=== PATIENT | male | born 1950 | race Caucasian/White ===

== ENCOUNTER 2016-07-30 08:54 | Observation (INO) | payer OTHER ==
[~2016-07-30] VITALS: Ht 182.9 cm; Wt 95.0 kg
[~2016-07-30 08:54] MED LIST: ASPI81TA82 PO; ATOR20TA42 PO; BUPR150XL PO; CELE200 PO; COMBAER INH; D3 U5000 PO; DICY10 PO; GABA300 PO; IRBE150T49 PO; LEXA20TA PO; METO25CR PO; MOME17I INH; MONT10TA2 PO; MUCI600T PO; NITR0.4S SL; OMEP20TA PO; PERC10TA27 PO; ZOFR4TAB3 SL; [UNRECOGNIZED DRUG - CODE] PO
[2016-07-30 09:03] VITALS: BP 140/79; PULSE 107; RESP 18; TEMP 98; O2SAT 100
[2016-07-30 09:11] VITALS: BP 140/79; PULSE 111; RESP 18; RESP 20; O2SAT 98
[2016-07-30] MEDS ORDERED: PANTOPRAZOLE SODIUM 40 MG VIAL IV PUSH ONE (09:15)
[2016-07-30] MEDS ORDERED: ONDANSETRON HCL 4 MG/2 ML VIAL IVP ONE (09:15)
[2016-07-30] MEDS ORDERED: SODIUM CHLORIDE 0.9% FLUSH 10 ML FLUSH IV FLUSH PRN ×2 (09:15→12:30)
--- NOTE | 2016-07-30 09:20 | PD ---
HPI Chief Complaint: GI Complaint Time Seen by Provider: 09:10 Travel History International Travel<30 days: No Contact w/Intl Traveler<30days: No Traveled to known affect area: No History of Present Illness HPI 66-year-old male with history of the month history of abdominal pains, intermittent nausea and vomiting, briefly diagnosed with gastritis, has had full workup done several days ago with CAT scan in which did not show any signs of acute processes, presents to the ER today with ongoing problems with nausea, vomiting, and vomiting up small amounts of blood. He states that his nausea and vomiting has been worsening a last week. He has noticed greatest stools but denies any black stools or blood in the stools. He states his pain is currently a 6 out of 10. He has not noticed any exacerbating or alleviating factors. Modifying Factors: None Associated Signs & Symptoms: Nausea, vomiting, abdominal pain Risk Factors: Nausea and vomiting PFSH Past Medical History Asthma: Yes Depression: Yes Cancer: Yes (leukemia) Cardiovascular Problems: Yes High Cholesterol: Yes Chemotherapy: Yes Chest Pain: Yes COPD: Yes Diabetes: Yes Patient Takes Glucophage: No GERD: Yes Hypertension: Yes Respiratory: Yes Tetanus Vaccination: > 5 Years Influenza Vaccination: Yes Past Surgical History Abdominal Surgery: Yes (bi-lat hernia repair) Other Surgery: Yes (fistula repair) Social History Alcohol Use: Yes (OCCASIONALLY) Tobacco Use: No Substance Use: No Allergies-Medications (Allergen,Severity, Reaction): Coded Allergies: No Known Allergies (Verified , 07/30/16) Reported Meds & Prescriptions Reported Meds & Active Scripts Active Reported Atorvastatin (Atorvastatin Calcium) 40 Mg Tab 40 Mg PO HS Montelukast (Montelukast Sodium) 10 Mg Tab 10 Mg PO HS Omeprazole 40 Mg Cap 40 Mg PO DAILY Irbesartan 300 Mg Tab 300 Mg PO DAILY Metoprolol Succinate ER 24 HR (Metoprolol Succinate) 25 Mg Tab 25 Mg PO DAILY Aspir-Low (Aspirin) 81 Mg Tabdr 81 Mg DAILY Escitalopram (Escitalopram Oxalate) 20 Mg Tab 20 Mg PO DAILY Celecoxib 200 Mg Cap 200 Mg PO DAILY Nitrostat SL (Nitroglycerin) 0.4 Mg Subl 0.4 Mg SL DIRECTED PRN 1 tablet under the tongue as needed for chest pain. Repeat every 5 minutes for a total of 3 DOSES or call 911 if NO relief. Wellbutrin SR 12 HR (Bupropion HCl) 200 Mg Tab 200 Mg PO DAILY Review of Systems Except as stated in HPI: all other systems reviewed are Neg Physical Exam Narrative GENERAL: Well-developed elderly white male patient who is currently in mild distress awake and oriented 3. SKIN: Focused skin assessment warm/dry. HEAD: Atraumatic. Normocephalic. EYES: Pupils equal and round. No scleral icterus. No injection or drainage. ENT: No nasal bleeding or discharge. Mucous membranes pink and moist. NECK: Trachea midline. No JVD. CARDIOVASCULAR: Regular rate and rhythm. No murmur appreciated. RESPIRATORY: No accessory muscle use. Clear to auscultation. Breath sounds equal bilaterally. GASTROINTESTINAL: Abdomen soft, epigastric and left upper quadrant tenderness without guarding or rebound, nondistended. Hepatic and splenic margins not palpable. MUSCULOSKELETAL: No obvious deformities. No clubbing. No cyanosis. No edema. NEUROLOGICAL: Awake and alert. No obvious cranial nerve deficits. Motor grossly within normal limits. Normal speech. PSYCHIATRIC: Appropriate mood and affect; insight and judgment normal. Data Data Last Documented VS Vital Signs Date Time Temp Pulse Resp B/P Pulse Ox O2 Delivery O2 Flow Rate FiO2 07/30/16 09:11 18 07/30/16 09:11 98 Room Air 07/30/16 09:11 111 140/79 07/30/16 09:03 98.0 Orders Complete Blood Count With Diff (07/30/16 09:05) Comprehensive Metabolic Panel (07/30/16 09:05) Lipase (07/30/16 09:05) Urinalysis - C+S If Indicated (07/30/16 09:05) Iv Access Insert/Monitor (07/30/16 09:05) Ecg Monitoring (07/30/16 09:05) Oximetry (07/30/16 09:05) Ondansetron Inj (Zofran Inj) (07/30/16 09:15) Sodium Chloride 0.9% Flush (Ns Flush) (07/30/16 09:15) Pantoprazole Inj (Protonix Inj) (07/30/16 09:15) Electrocardiogram (07/30/16 09:20) Abdomen, Flat & Upright (07/30/16 09:20) Ct Abd/Pel W Iv Contrast(Rout) (07/30/16 10:36) Iohexol 350 Inj (Omnipaque 350 Inj) (07/30/16 11:35) Admit Order (Ed Use Only) (07/30/16 12:03) Labs Laboratory Tests Test 07/30/16 09:15 White Blood Count 14.6 TH/MM3 Red Blood Count 4.78 MIL/MM3 Hemoglobin 14.5 GM/DL Hematocrit 43.5 % Mean Corpuscular Volume 91.0 FL Mean Corpuscular Hemoglobin 30.4 PG Mean Corpuscular Hemoglobin 33.4 % Concent Red Cell Distribution Width 12.3 % Platelet Count 245 TH/MM3 Mean Platelet Volume 9.5 FL Neutrophils (%) (Auto) 88.4 % Lymphocytes (%) (Auto) 5.0 % Monocytes (%) (Auto) 5.8 % Eosinophils (%) (Auto) 0.6 % Basophils (%) (Auto) 0.2 % Neutrophils # (Auto) 12.9 TH/MM3 Lymphocytes # (Auto) 0.7 TH/MM3 Monocytes # (Auto) 0.8 TH/MM3 Eosinophils # (Auto) 0.1 TH/MM3 Basophils # (Auto) 0.0 TH/MM3 CBC Comment DIFF FINAL Differential Comment Sodium Level 139 MEQ/L Potassium Level 3.3 MEQ/L Chloride Level 109 MEQ/L Carbon Dioxide Level 19.6 MEQ/L Anion Gap 10 MEQ/L Blood Urea Nitrogen 27 MG/DL Creatinine 1.14 MG/DL Estimat Glomerular Filtration 64 ML/MIN Rate Random Glucose 181 MG/DL Calcium Level 8.5 MG/DL Total Bilirubin 0.6 MG/DL Aspartate Amino Transf 10 U/L (AST/SGOT) Alanine Aminotransferase 30 U/L (ALT/SGPT) Alkaline Phosphatase 101 U/L Total Protein 6.4 GM/DL Albumin 3.6 GM/DL Lipase 77 U/L [facility] Medical Decision Making Medical Screen Exam Complete: Yes Emergency Medical Condition: Yes Medical Record Reviewed: Yes Interpretation(s) EKG shows sinus tachycardia at a rate of 110 bpm with no signs of acute ST-T changes. Laboratory Tests Test 07/30/16 09:15 White Blood Count 14.6 TH/MM3 (4.0-11.0) Neutrophils (%) (Auto) 88.4 % (16.0-70.0) Lymphocytes (%) (Auto) 5.0 % (9.0-44.0) Neutrophils # (Auto) 12.9 TH/MM3 (1.8-7.7) Lymphocytes # (Auto) 0.7 TH/MM3 (1.0-4.8) Potassium Level 3.3 MEQ/L (3.5-5.1) Chloride Level 109 MEQ/L (98-107) Carbon Dioxide Level 19.6 MEQ/L (21.0-32.0) Blood Urea Nitrogen 27 MG/DL (7-18) Estimat Glomerular Filtration 64 ML/MIN (>89) Rate Random Glucose 181 MG/DL (74-106) Aspartate Amino Transf 10 U/L (15-37) (AST/SGOT) Differential Diagnosis Nausea, vomiting, abdominal painsgastritis versus gastroenteritis versus GI bleed versus dehydration versus metabolic issues Narrative Course Lab work shows significant leukocytosis. He is tachycardic in the ER. IV fluids, pain medications, and Zofran was given to the patient. CAT scan did not show any signs of acute intra-abdominal processes. The case was then discussed with Dr. Gil for observation admission concerning for underlying GI bleeding, gastritis, abdominal pain. Diagnosis Primary Impression: UPPER ABDOMINAL PAIN, UNSPECIFIED Additional Impression: GI bleeding Admitting Information Admitting Physician Requests: Admit Amy Cueto MD Jul 30, 2016 09:20
[2016-07-30] MEDS ORDERED: ATOR40TA16 PO (09:49)
[2016-07-30] MEDS ORDERED: MONT10TA4 PO (09:49)
[2016-07-30] MEDS ORDERED: OMEP40CA2 PO (09:49)
[2016-07-30] MEDS ORDERED: IRBE300T11 PO (09:49)
[2016-07-30] MEDS ORDERED: BUPR1TAB74 PO (09:49)
[2016-07-30] MEDS ORDERED: ASPI81TA19 (09:49)
[2016-07-30] MEDS ORDERED: CELE1CAP8 PO (09:49)
[2016-07-30] MEDS ORDERED: NITR0.4S SL (09:49)
[2016-07-30] MEDS ORDERED: METO25TA6 PO (09:49)
[2016-07-30] MEDS ORDERED: ESCI20TA PO (09:49)
[2016-07-30] MEDS ORDERED: WELL200T PO (09:49)
[2016-07-30 09:52] LABS: AUTOMATED NEUTROPHIL # 12.9 TH/MM3 (1.8-7.7); BASOPHIL % 0.2 % (0.0-2.0); EOSINOPHIL # 0.1 TH/MM3 (0-0.4); EOSINOPHIL % 0.6 % (0.0-4.0); HEMATOCRIT 43.5 % (39.0-51.0); HEMO FLAGS DIFF FINAL; LYMPHOCYTE # 0.7 TH/MM3 (1.0-4.8); MEAN CORPUSCULAR HEMOGLOBIN 30.4 PG (27.0-34.0); MEAN CORPUSCULAR HGB CONC 33.4 % (32.0-36.0); MONO % 5.8 % (0.0-8.0); NEUT % 88.4 % (16.0-70.0); PLATELET COUNT 245 TH/MM3 (150-450); RED BLOOD COUNT 4.78 MIL/MM3 (4.50-5.90); RED CELL DISTRIBUTION WIDTH 12.3 % (11.6-17.2); WHITE BLOOD COUNT 14.6 TH/MM3 (4.0-11.0)
[2016-07-30 10:11] LABS: ANION GAP 10 MEQ/L (5-15); AST (GOT) 10 U/L (15-37); BICARBONATE 19.6 MEQ/L (21.0-32.0); BLOOD UREA NITROGEN 27 MG/DL (7-18); CHLORIDE 109 MEQ/L (98-107); GLOMERULAR FILTRATION RATE 64 ML/MIN (>89); POTASSIUM 3.3 MEQ/L (3.5-5.1); SODIUM (NA) 139 MEQ/L (136-145)
[2016-07-30 10:15] LABS: ALKALINE PHOSPHATASE 101 U/L (45-117); ALT (GPT) 30 U/L (12-78); TOTAL BILIRUBIN ADULT 0.6 MG/DL (0.2-1.0)
[2016-07-30] MEDS ORDERED: IOHEXOL 350 MG/ML 10 ML VIAL (for RAD DIAG) IV ONE (11:35)
--- NOTE | 2016-07-30 11:52 | RADRPT ---
EXAM DATE/TIME: 07/30/2016 09:46 [facility] COMPARISON: No previous studies available for comparison. INDICATIONS : Vomiting. MEDICAL HISTORY : Leukemia. SURGICAL HISTORY : Hernia repair ENCOUNTER: Initial ACUITY: 1 day PAIN SCORE: 7/10 LOCATION: Bilateral across abdomen FINDINGS: Supine and upright views of the abdomen were performed. The abdominal bowel gas pattern is normal. No air fluid levels are seen. No abnormal masses, calcifications, or organomegaly is seen. The visu alized lower lungs are clear. No evidence of free intraperitoneal gas. There are postsurgical change s in lower lumbar spine status post multilevel fusion. There is mild scoliosis and degenerative disc changes are present. There are multiple surgical patricia in the pelvis. CONCLUSION: 1. Unremarkable bowel gas pattern. 2. Degenerative and postsurgical changes in the lumbar spine. Jozef Dennis MD on July 30, 2016 at 11:50 Board Certified Radiologist. This report was verified electronically.
--- NOTE | 2016-07-30 11:58 | RADRPT ---
EXAM DATE/TIME: 07/30/2016 11:30 [facility] COMPARISON: CT ABDOMEN & PELVIS W CONTRAST, March 11, 2014, 10:59. INDICATIONS : Abdominal pain for one month with intermittent nausea and vomiting IV CONTRAST: 80 cc Omnipaque 350 (iohexol) IV ORAL CONTRAST: No oral contrast ingested. RADIATION DOSE: 9.96 CTDIvol (mGy) MEDICAL HISTORY : Hypertension. Gastroesophageal reflux disease. Leukemia. SURGICAL HISTORY : Bilateral hernia repair. Back surgery. ENCOUNTER: Initial ACUITY: 1 month PAIN SCALE: 5/10 LOCATION: Diffuse abdomen TECHNIQUE: Volumetric scanning of the abdomen and pelvis was performed. Using automated exposure control and ad justment of the mA and/or kV according to patient size, radiation dose was kept as low as reasonably achievable to obtain optimal diagnostic quality images. FINDINGS: LOWER LUNGS: The visualized lower lungs are clear. LIVER: Homogeneous density with a tiny stable cyst again noted in the right lobe. There is no dilation of th e biliary tree. No calcified gallstones. There is mild hepatic steatosis. SPLEEN: Normal size without lesion. PANCREAS: Within normal limits. KIDNEYS: Normal in size and shape. There is no mass, stone or hydronephrosis. ADRENAL GLANDS: Within normal limits. VASCULAR: Atherosclerotic changes again noted in the aorta with focal dilatation calcification. This now measur es up to approximately 2.9 x 2.9 cm and is not significantly changed. BOWEL/MESENTERY: The stomach, small bowel, and colon demonstrate no acute abnormality. There is no free intraperitone al air or fluid. ABDOMINAL WALL: Surgical changes are again noted status post lower abdominal wall hernia repair with mesh in place. RETROPERITONEUM: There is no lymphadenopathy. BLADDER: No wall thickening or mass. REPRODUCTIVE: Within normal limits. INGUINAL: There is no lymphadenopathy or hernia. MUSCULOSKELETAL: Postsurgical changes are again noted in the lumbar spine status post multilevel fusion. CONCLUSION: 1. Borderline small abdominal aortic aneurysm without change. 2. Small hiatal hernia. 3. Stable small hepatic cysts and mild hepatic steatosis. 4. Status post lower anterior abdominal wall hernia repair. Jozef Dennis MD on July 30, 2016 at 11:53 Board Certified Radiologist. This report was verified electronically.
[2016-07-30] MEDS ORDERED: BISACODYL 10 MG SUPP RECTAL PRN (12:30)
[2016-07-30] MEDS ORDERED: NALOXONE HCL 0.4 MG/ML AMP IV PRN (12:30)
[2016-07-30] MEDS ORDERED: ONDANSETRON HCL 4 MG/2 ML VIAL IV PUSH ONE (12:30)
[2016-07-30 13:08] VITALS: BP 136/83; PULSE 116; RESP 18; O2SAT 99
[2016-07-30] MEDS: SODIUM CHLOR 0.9% 1000 ML INJ 1,000 ML IV SCH ×2 (13:09→21:16)
--- NOTE | 2016-07-30 14:13 | HHI.HP ---
[facility] Primary Care Physician Non-Staff Admission Diagnosis abdominal pain/GI bleed Diagnoses: Chief Complaint: abdominal pain, vomitting, and diarrhea Travel History International Travel<30 Days: No Contact w/Intl Traveler <30 Da: No Traveled to Known Affected Are: No History of Present Illness This is a 66-year-old male past medical history of hypertension, hyperlipidemia , diet-controlled type 2 diabetes, COPD, history of hairy cell leukemia in remission who presented with abdominal pain, emesis, diarrhea, and dysphasia for 1 month. Patient stated that pain is constant, diffuse across the abdomen. He stated nothing makes it better or worse. Patient states emesis occurs randomly and it may or may not be associated with food. Emesis described as anything that patient ingest. Patient also had diarrhea about 6 watery stools every day. Deny any recent travels or antibiotic use. He stated that yesterday it had gotten so bad where he had increased emesis in which he saw some blood and 3 of the episodes so went to emergency department. Patient did see his primary care physician regards to this and stated that he had a CT scan of the abdomen and pelvis and abdominal ultrasound in which workup was negative. Patient takes aspirin 81 mg and Celebrex. Otherwise he denies taking any other NSAIDs. Patient had a colonoscopy a couple years ago and had a few polyps that were benign. He also complained about difficulty swallowing for the past month. He stated that when he ingests solid food he feels like it stuck in his throat. He also stated that this occurs with liquids but is mild. Review of Systems Constitutional: DENIES: Diaphoretic episodes, Fatigue, Fever, Weight gain, Weight loss, Chills, Dizziness, Change in appetite, Night Sweats Endocrine: DENIES: Heat/cold intolerance, Polydipsia, Polyuria, Polyphagia Eyes: DENIES: Blurred vision, Diplopia, Eye inflammation, Eye pain, Vision loss , Photosensitivity, Double Vision Ears, nose, mouth, throat: DENIES: Tinnitus, Hearing loss, Vertigo, Nasal discharge, Oral lesions, Throat pain, Hoarseness, Ear Pain, Running Nose, Epistaxis, Sinus Pain, Toothache, Odynophagia Respiratory: DENIES: Apneas, Cough, Snoring, Wheezing, Hemoptysis, Sputum production, Shortness of breath Cardiovascular: DENIES: Chest pain, Palpitations, Syncope, Dyspnea on Exertion , PND, Lower Extremity Edema, Orthopnea, Claudication Gastrointestinal: COMPLAINS OF: Abdominal pain, Diarrhea, Nausea, Difficulty Swallowing, DENIES: Black stools, Bloody stools, Constipation, Vomiting, Anorexia Genitourinary: DENIES: Sexual dysfunction, Urinary frequency, Urinary incontinence, Urgency, Hematuria, Dysuria, Nocturia, Penile Discharge, Testicular Pain, Testicular Swelling Musculoskeletal: DENIES: Joint pain, Muscle aches, Stiffness, Joint Swelling, Back pain, Neck pain Integumentary: DENIES: Abnormal pigmentation, Nail changes, Pruritus, Rash Hematologic/lymphatic: DENIES: Bruising, Lymphadenopathy Immunologic/allergic: DENIES: Eczema, Urticaria Neurologic: DENIES: Abnormal gait, Headache, Localized weakness, Paresthesias, Seizures, Speech Problems, Tremor, Poor Balance Psychiatric: DENIES: Anxiety, Confusion, Mood changes, Depression, Hallucinations, Agitation, Suicidal Ideation, Homicidal Ideation, Delusions Past Family Social History Past Medical History Hypertension, hyperlipidemia, type 2 diabetes diet-controlled, COPD, history of hairy cell leukemia in remission last chemotherapy dose in 2007, depression Past Surgical History Multiple back surgeries Neck repair Hernia repair Rectal surgery secondary to fistula Reported Medications Atorvastatin (Atorvastatin Calcium) 40 Mg Tab 40 Mg PO HS Montelukast (Montelukast Sodium) 10 Mg Tab 10 Mg PO HS Omeprazole 40 Mg Cap 40 Mg PO DAILY Irbesartan 300 Mg Tab 300 Mg PO DAILY Metoprolol Succinate ER 24 HR (Metoprolol Succinate) 25 Mg Tab 25 Mg PO DAILY Aspir-Low (Aspirin) 81 Mg Tabdr 81 Mg DAILY Escitalopram (Escitalopram Oxalate) 20 Mg Tab 20 Mg PO DAILY Celecoxib 200 Mg Cap 200 Mg PO DAILY Nitrostat SL (Nitroglycerin) 0.4 Mg Subl 0.4 Mg SL DIRECTED PRN 1 tablet under the tongue as needed for chest pain. Repeat every 5 minutes for a total of 3 DOSES or call 911 if NO relief. Wellbutrin SR 12 HR (Bupropion HCl) 200 Mg Tab 200 Mg PO DAILY Allergies: Coded Allergies: No Known Allergies (Verified , 07/30/16) Active Ordered Medications Current Medications Ondansetron HCl (Zofran Inj) 4 mg ONCE ONCE IVP Last administered on 09:56; Start 07/30/16 at 09:15; Stop 07/30/16 at 09:16; Status DC Sodium Chloride (NS Flush) 2 ml UNSCH PRN IV FLUSH FLUSH AFTER USING IV ACCESS ; Start 07/30/16 at 09:15; Stop 07/30/16 at 12:53; Status DC Pantoprazole Sodium (Protonix Inj) 40 mg ONCE ONCE IV PUSH Last administered on 07/30/16 09:55; Start 07/30/16 at 09:15; Stop 07/30/16 at 09:16; Status DC Iohexol 80 ml 80 ml STK-MED ONCE IV Last administered on 07/30/16 11:35; Start 07/30/16 at 11:35; Stop 07/30/16 at 11:36; Status DC Sodium Chloride (NS 1000 ml Inj) 1,000 ml @ 125 mls/hr Q8H IV Last administered on 07/30/16 13:09; Start 07/30/16 at 12:17 Sodium Chloride (NS Flush) 2 ml UNSCH PRN IV FLUSH FLUSH AFTER USING IV ACCESS ; Start 07/30/16 at 12:30 Sodium Chloride (NS Flush) 2 ml BID IV FLUSH ; Start 07/30/16 at 21:00 Acetaminophen (Tylenol) 650 mg Q4H PRN PO TEMP > 100.4; Start 07/30/16 at 12:30 Ondansetron HCl (Zofran Inj) 4 mg Q6H PRN IVP NAUSEA OR VOMITING; Start at 12:30 Bisacodyl (Dulcolax Supp) 10 mg DAILY PRN RECTAL CONSTIPATION; Start 07/30/16 at 12:30 Naloxone HCl (Narcan Inj) 0.4 mg UNSCH PRN IV SEE LABEL COMMENTS; Start at 12:30 Ondansetron HCl (Zofran Inj) 4 mg ONCE ONCE IV PUSH Last administered on 13:10; Start 07/30/16 at 12:30; Stop 07/30/16 at 12:31; Status DC Pantoprazole Sodium 40 mg 40 mg Q12H IV PUSH ; Start 07/30/16 at 21:00 Sodium Chloride (NS 1000 ml Inj) 1,000 ml @ 999 mls/hr BOLUS ONCE IV ; Start 07/30/16 at 15:00; Stop 07/30/16 at 16:00 Atorvastatin Calcium (Lipitor) 40 mg HS PO ; Start 07/30/16 at 21:00; Status UNV Bupropion HCl (Wellbutrin Sr 12 Hr) 200 mg DAILY PO ; Start 07/31/16 at 09:00; Status UNV Escitalopram Oxalate (Lexapro) 20 mg DAILY PO ; Start 07/31/16 at 09:00; Status UNV Metoprolol Succinate (Toprol Xl) 25 mg DAILY PO ; Start 07/31/16 at 09:00; Status UNV Montelukast Sodium (Singulair) 10 mg HS PO ; Start 07/30/16 at 21:00; Status UNV Non-Formulary Medication 300 mg DAILY PO BPM; Start 07/31/16 at 09:00; Status UNV Family History Father had lung cancer and colon cancer. Mother had colon cancer and vaginal cancer. Sister had breast cancer. Social History Patient was at home by himself. Denies any alcohol illicit drug use. He stated that he stopped smoking 8 years ago. Physical Exam Vital Signs Vital Signs Date Time Temp Pulse Resp B/P Pulse Ox O2 Delivery O2 Flow Rate FiO2 07/30/16 13:08 116 18 136/83 99 Nasal Cannula 2 07/30/16 09:11 18 07/30/16 09:11 18 98 Room Air 07/30/16 09:11 111 20 140/79 98 Room Air 07/30/16 09:03 98.0 107 18 140/79 100 Physical Exam GENERAL: This is a well-nourished, well-developed patient, in no apparent distress. SKIN: No rashes, ecchymoses or lesions. Cool and dry. HEAD: Atraumatic. Normocephalic. No temporal or scalp tenderness. EYES: Pupils equal round and reactive. Extraocular motions intact. No scleral icterus. No injection or drainage. ENT: Nose without bleeding, purulent drainage or septal hematoma. Throat without erythema, tonsillar hypertrophy or exudate. Uvula midline. Airway patent. NECK: Trachea midline. No JVD or lymphadenopathy. Supple, nontender, no meningeal signs. CARDIOVASCULAR: Regular rate and rhythm without murmurs, gallops, or rubs. RESPIRATORY: Clear to auscultation. Breath sounds equal bilaterally. No wheezes , rales, or rhonchi. GASTROINTESTINAL: Abdomen soft, non-tender, nondistended. No hepato-splenomegaly , or palpable masses. No guarding. MUSCULOSKELETAL: Extremities without clubbing, cyanosis, or edema. No joint tenderness, effusion, or edema noted. No calf tenderness. Negative Homans sign bilaterally. NEUROLOGICAL: Awake and alert. Cranial nerves II through XII intact. Motor and sensory grossly within normal limits. Five out of 5 muscle strength in all muscle groups. Normal speech. Laboratory Laboratory Tests Test 07/30/16 09:15 White Blood Count 14.6 Red Blood Count 4.78 Hemoglobin 14.5 Hematocrit 43.5 Mean Corpuscular Volume 91.0 Mean Corpuscular Hemoglobin 30.4 Mean Corpuscular Hemoglobin 33.4 Concent Red Cell Distribution Width 12.3 Platelet Count 245 Mean Platelet Volume 9.5 Neutrophils (%) (Auto) 88.4 Lymphocytes (%) (Auto) 5.0 Monocytes (%) (Auto) 5.8 Eosinophils (%) (Auto) 0.6 Basophils (%) (Auto) 0.2 Neutrophils # (Auto) 12.9 Lymphocytes # (Auto) 0.7 Monocytes # (Auto) 0.8 Eosinophils # (Auto) 0.1 Basophils # (Auto) 0.0 CBC Comment DIFF FINAL Differential Comment Sodium Level 139 Potassium Level 3.3 Chloride Level 109 Carbon Dioxide Level 19.6 Anion Gap 10 Blood Urea Nitrogen 27 Creatinine 1.14 Estimat Glomerular Filtration 64 Rate Random Glucose 181 Calcium Level 8.5 Total Bilirubin 0.6 Aspartate Amino Transf 10 (AST/SGOT) Alanine Aminotransferase 30 (ALT/SGPT) Alkaline Phosphatase 101 Total Protein 6.4 Albumin 3.6 Lipase 77 Result Diagram: 07/30/1691407/30/16914 Imaging Last Impressions Abdomen/Pelvis CT 07/30/16 1036 Signed Impressions: Service Date/Time: July 11:30 - CONCLUSION: 1. Borderline small abdominal aortic aneurysm without change. 2. Small hiatal hernia. 3. Stable small hepatic cysts and mild hepatic steatosis. 4. Status post lower anterior abdominal wall hernia repair. Jozef Dennis MD Abdomen X-Ray 07/30/16 0920 Signed Impressions: Service Date/Time: July 09:46 - CONCLUSION: 1. Unremarkable bowel gas pattern. 2. Degenerative and postsurgical changes in the lumbar spine. Jozef Dennis MD Assessment and Plan Assessment and Plan 56-year-old male with history of hypertension, lipidemia, COPD, diet-controlled diabetes, depression who presented with Abdominal pain, emesis, and diarrhea -CT scan showed a borderline small abdominal aneurysm, hiatal hernia, hepatic cysts, lower abdominal wall hernia repair. -Patient is tachycardia with a mild leukocytosis but otherwise labs are relatively stable. -Patient had an outpatient ultrasound the liver and CT scan of his abdomen which was negative. Will try to obtain records of the ultrasound. -Questionable hematemesis so we'll need to consult GI for possible scope. -Hemoglobin is stable. Will trend H&H. Will get stool studies. Check a TSH. -Start patient on Protonix 40 mg IV twice a day. -Continue with supportive care with IV fluids and anti-emetics. Questionable hematemesis -Trend H&H. Patient will be on Protonix. -Will hold aspirin and Celebrex. -Will transfuse as needed. At the moment patient hemoglobin is 14.6. -GI consult. Dysphagia -Will get a barium swallow study. GI also consulted for possible EGD. Leukocytosis -Most likely secondary to an inflammatory process. -No bacterial infection noted at the moment. -We'll continue to monitor. Tachycardia -Most likely secondary to dehydration. Will give patient a bolus of normal saline and start him on IV maintenance fluids. -He will be monitored on telemetry. Hypokalemia -Replenish as needed. Hypertension/hyperlipidemia/type 2 diabetes diet-controlled/depression/hairy cell leukemia in remission -Will hold aspirin and Celebrex secondary to possible GI bleed. -Will resume home medication. -Also start patient on insulin sliding scale. DVT prophylaxis -Will avoid chemoprophylaxis due to possible GI bleed. -SCDs. Code Status full Discussed Condition With patient and nurse Amanda Gil MD Jul 30, 2016 14:13
[2016-07-30] MEDS ORDERED: GLUCAGON 1 MG/ML VIAL OTHER PRN (14:45)
[2016-07-30] MEDS ORDERED: POTASSIUM CHLORIDE 10 MEQ CONTROLLED RELEASE TAB PO ONE (14:45)
[2016-07-30] MEDS ORDERED: DEXTROSE 50% IN WATER 50 ML VIAL(D50) IV PUSH PRN (14:45)
[2016-07-30] MEDS ORDERED: SODIUM CHLOR 0.9% 1000 ML INJ 1,000 ML IV ONE (15:00)
--- NOTE | 2016-07-30 15:15 | RADRPT ---
EXAM DATE/TIME: 07/30/2016 14:53 [facility] COMPARISON: No previous studies available for comparison. INDICATIONS : Dysphagia. FLUORO TIME: 1.3 minutes IMAGE COUNT: 12 CONTRAST: 1. Liquid E-Z Paque Barium Sulfate (60% w/v, 41% w.w) 2. E-Z HD Barium Sulfate (98% w.w) MEDICAL HISTORY : Leukemia. Radiation and chemotherapy. SURGICAL HISTORY : Cspine fusion. ENCOUNTER: Initial ACUITY: >1 year PAIN SCORE: 0/10 LOCATION: Esophagus. FINDINGS: Air-contrast views of the hypopharynx demonstrate a normal mucosal surface without filling defect. R apid sequence images of the hypopharynx and cervical esophagus during the passage of barium demonstra te a normal swallowing function. No evidence of aspiration. Multiphasic examination of the esophagu s demonstrates no esophageal fold thickening, ulceration, or filling defect. The gastroesophageal ju nction is normal in configuration without evidence of hiatal hernia. Patient is status post cervical fusion at the C4-C7 level with anterior screw-plate fixation device. There is bone grafting material and markers in the interspace. CONCLUSION: Unremarkable exam. Jozef Dennis MD on July 30, 2016 at 15:06 Board Certified Radiologist. This report was verified electronically.
--- NOTE | 2016-07-30 15:21 | PD.CONS ---
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 He reports that his symptoms began about a month ago with nausea, vomiting, and abdominal pain with diffuse and a constant pressure/achy pain. It does not seem to be related to food or month. He has frequent nausea/vomiting, usually this was bilious material, but he reports that he did vomit "a half of pint of blood" mixed in his emesis x 2 times overnight. He does have GERD and takes omeprazole at home and this usually controls this. He also has been having diarrhea with about 6 watery brown stools every day. He has not seen any blood in this. He has been having some difficulty swallowing with solid foods getting caught in his upper esophagus. He states that occasionally this will also happen with liquids, but not severe for the most part. He has lost about 9 lbs over the past month. He takes Aspirin and Plavix, but no other NSAIDs. He has a remote hx of PUD 20 years ago. His last colonoscopy was about 2 years ago- states he had colon polyps. (Ranjana Lam) PFSH Past Medical History Hypertension Hyperlipidemia Type 2 diabetes diet-controlled COPD History of hairy cell leukemia in remission last chemotherapy dose in 2007 Depression Colon polyps Remote hx of PUD Past Surgical History Multiple back surgeries Neck repair Hernia repair Rectal surgery secondary to fistula (Ranjana Lam) Coded Allergies: No Known Allergies (Verified , 07/30/16) Medications Allergies Coded Allergies Type Severity Reaction Last Updated Verified No Known Allergies 07/30/16 Yes Active Scripts Medications Dose Route/Sig Days Date Category Dose Instructions Atorvastatin (Atorvastatin Calcium) 40 Mg Tab 40 Mg PO HS 07/30/16 Reported Montelukast (Montelukast Sodium) 10 Mg Tab 10 Mg PO HS 07/30/16 Reported Omeprazole 40 Mg Cap 40 Mg PO DAILY 07/30/16 Reported Irbesartan 300 Mg Tab 300 Mg PO DAILY 07/30/16 Reported Metoprolol Succinate ER 24 HR (Metoprolol Succinate) 25 Mg Tab 25 Mg PO DAILY 07/30/16 Reported Aspir-Low (Aspirin) 81 Mg Tabdr 81 Mg DAILY 07/30/16 Reported Escitalopram (Escitalopram Oxalate) 20 Mg Tab 20 Mg PO DAILY 07/30/16 Reported Celecoxib 200 Mg Cap 200 Mg PO DAILY 07/30/16 Reported Nitrostat SL (Nitroglycerin) 0.4 Mg Subl 0.4 Mg SL DIRECTED PRN 07/30/16 Reported 1 tablet under the tongue as needed for chest pain. Repeat every 5 minutes for a total of 3 DOSES or call 911 if NO relief. Wellbutrin SR 12 HR (Bupropion HCl) 200 Mg Tab 200 Mg PO DAILY 07/30/16 Reported Family History Father had lung cancer and colon cancer. Mother had colon cancer and vaginal cancer. Sister had breast cancer. Social History Denies any alcohol illicit drug use. He stated that he stopped smoking 8 years ago. (Ranjana Lam) Review of Systems Constitutional: COMPLAINS OF: Fatigue, Weight loss, Change in appetite Respiratory: DENIES: Cough Cardiovascular: DENIES: Chest pain Gastrointestinal: COMPLAINS OF: Abdominal pain, Diarrhea, Nausea, Vomiting, Difficulty Swallowing, Anorexia, Heartburn, Hematemesis, DENIES: Black stools, Bloody stools, Constipation Musculoskeletal: COMPLAINS OF: Joint pain, Back pain Integumentary: DENIES: Abnormal pigmentation Hematologic/lymphatic: DENIES: Bruising Neurologic: DENIES: Headache Psychiatric: DENIES: Confusion (Ranjana Lam) GI Exam Vitals I&O Vital Signs Date Time Temp Pulse Resp B/P Pulse Ox O2 Delivery O2 Flow Rate FiO2 07/30/16 13:08 116 18 136/83 99 Nasal Cannula 2 07/30/16 09:11 18 07/30/16 09:11 18 98 Room Air 07/30/16 09:11 111 20 140/79 98 Room Air 07/30/16 09:03 98.0 107 18 140/79 100 Imaging Last Impressions Abdomen/Pelvis CT 07/30/16 1036 Signed Impressions: Service Date/Time: July 11:30 - CONCLUSION: 1. Borderline small abdominal aortic aneurysm without change. 2. Small hiatal hernia. 3. Stable small hepatic cysts and mild hepatic steatosis. 4. Status post lower anterior abdominal wall hernia repair. Jozef Dennis MD Abdomen X-Ray 07/30/16 0920 Signed Impressions: Service Date/Time: July 09:46 - CONCLUSION: 1. Unremarkable bowel gas pattern. 2. Degenerative and postsurgical changes in the lumbar spine. Jozef Dennis MD Laboratory Test 07/30/16 09:15 White Blood Count 14.6 TH/MM3 Red Blood Count 4.78 MIL/MM3 Hemoglobin 14.5 GM/DL Hematocrit 43.5 % Mean Corpuscular Volume 91.0 FL Mean Corpuscular Hemoglobin 30.4 PG Mean Corpuscular Hemoglobin 33.4 % Concent Red Cell Distribution Width 12.3 % Platelet Count 245 TH/MM3 Mean Platelet Volume 9.5 FL Neutrophils (%) (Auto) 88.4 % Lymphocytes (%) (Auto) 5.0 % Monocytes (%) (Auto) 5.8 % Eosinophils (%) (Auto) 0.6 % Basophils (%) (Auto) 0.2 % Neutrophils # (Auto) 12.9 TH/MM3 Lymphocytes # (Auto) 0.7 TH/MM3 Monocytes # (Auto) 0.8 TH/MM3 Eosinophils # (Auto) 0.1 TH/MM3 Basophils # (Auto) 0.0 TH/MM3 CBC Comment DIFF FINAL Differential Comment Sodium Level 139 MEQ/L Potassium Level 3.3 MEQ/L Chloride Level 109 MEQ/L Carbon Dioxide Level 19.6 MEQ/L Anion Gap 10 MEQ/L Blood Urea Nitrogen 27 MG/DL Creatinine 1.14 MG/DL Estimat Glomerular Filtration 64 ML/MIN Rate Random Glucose 181 MG/DL Calcium Level 8.5 MG/DL Total Bilirubin 0.6 MG/DL Aspartate Amino Transf 10 U/L (AST/SGOT) Alanine Aminotransferase 30 U/L (ALT/SGPT) Alkaline Phosphatase 101 U/L Total Protein 6.4 GM/DL Albumin 3.6 GM/DL Lipase 77 U/L Thyroid Stimulating Hormone 2.160 uIU/ML 3rd Gen Physical Examination HEENT: Normocephalic; atraumatic; no jaundice. CHEST: CTA CARDIAC: Regular, mild tachycardia ABDOMEN: Soft, mildly bloated, mild diffuse tenderness; no hepatosplenomegaly; bowel sounds are present in all four quadrants. EXTREMITIES: No clubbing, cyanosis, or edema. SKIN: Normal; no rash; no jaundice. MAILING JOGGER: No focal deficits; alert and oriented times three. (Ranjana Lam) Assessment and Plan Plan ASSESSMENT: - N/V/D with abdominal pain. 1 month hx of N/V/D with diffuse abdominal pain ( mild to mod dull ache/pressure) intermittent, without aggravating or alleviating factors. No recent travel, suspicious food, sick contacts. Was treated with abx about 3 weeks ago for a sinus infection. Abdomen X-Ray (07/30/16)----> 1. Unremarkable bowel gas pattern. 2. Degenerative and postsurgical changes in the lumbar spine. Abdomen/Pelvis CT (07/30/16)----> 1. Borderline small abdominal aortic aneurysm without change. 2. Small hiatal hernia. 3. Stable small hepatic cysts and mild hepatic steatosis. 4. Status post lower anterior abdominal wall hernia repair. Mild leukocytosis. CT as above. Will need to get stool studies. Consider EGD +/- colonoscopy after stool studies resulted. PPI. Last colonoscopy 2 years ago- polyps - GIB with hematemesis. Pt has had persistent nausea/vomiting x 1 month. Initially bilious material, but did have two episodes of vomiting bilious material with streaks of blood in his emesis last night. He has not had any further episodes. Remote hx of PUD 20 years ago. HH 14.5/43.5. - Dysphagia. C/O one month hx of solids getting caught in upper esophagus, occasionally happens with liquids. Barium Swallow X-Ray (07/30/16)-----> Unremarkable exam. - Leukocytosis. WBC 14.6. - Hypokalemia. Replacement per primary - HTN, Hyperlipidemia, DM, COPD per primary - Hx hairy cell leukemia, s/p chemotherapy- currently in remission since 2007 PLAN: - Clear liquids - Await CDiff - Stool studies - Add Flagyl 500mg IV q8h - Protonix 40mg IV BID - Monitor CBC, BMP - Consider EGD +/- Dilatation, +/- Colonoscopy after CDiff resulted - Supportive care - FUrther recommendations to follow based on results of above. - Pt seen and examined by Dr. Brown and myself and this note is written on his behalf (Ranjana Lam) Physician Comments Seen and examined Agree with above Continue with current supportive care Monitor labs We'll probably pursue EGD and colonoscopy on Wednesday or possibly even as an outpatient (Andrew Brown MD) Ranjana Lam Jul 30, 2016 15:20 Andrew Brown MD Jul 30, 2016 21:34
[2016-07-30] MEDS: metroNIDAZOLE 500 MG INJ 100 ML IV SCH ×2 (16:25→23:21)
[2016-07-30] MEDS: INSULIN ASPART SUPPLEMENTAL SCALE SQ SCH ×2 (16:31→21:00)
[2016-07-30 16:33] VITALS: BP 142/81; PULSE 107; RESP 18; O2SAT 97
[2016-07-30 16:48] LABS: BLOOD, URINE NEG (NEG); COMMENT (UR) CULT NOT INDICATED; CULTURE IF INDICATED CULT NOT INDICATED; GLUCOSE,URINE NEG (NEG); KETONE, URINE TRACE mg/dL (NEG); MUCUS URINE FEW /lpf (OCC); NITRITE,URINE NEG (NEG); URINE COLOR YELLOW (YELLW/STRAW)
--- NOTE | 2016-07-30 18:36 | EKG ---
Date Performed: 07/30/2016 Time Performed: 11:12:51 PTAGE: 66 years EKG: SINUS TACHYCARDIA ABNORMAL RHYTHM ECG NO SIGNIFICANT CHANGE FROM PRIOR ELECTROCARDIOGRAM. PREVIOUS TRACING : 07/23/2012 18.42 DOCTOR: Phillip Brown Interpretating Date/Time 07/30/2016 18:34:52
[2016-07-30 18:38] VITALS: BP 125/79; PULSE 97; RESP 18; TEMP 98.1; O2SAT 97
[2016-07-30 18:39] LABS: C. DIFF EPI 027 PRESUMPTIVE NEGATIVE (NEGATIVE); C. DIFF TOXIN PCR NEGATIVE (NEGATIVE)
[2016-07-30 20:15] VITALS: BP 126/76; PULSE 85; RESP 18; TEMP 98.2; O2SAT 96
[2016-07-30] MEDS ORDERED: MONTELUKAST SODIUM 10 MG TAB PO SCH (21:00)
[2016-07-30] MEDS: SODIUM CHLORIDE 0.9% FLUSH 10 ML FLUSH IV FLUSH SCH (21:00)
[2016-07-30] MEDS ORDERED: ATORVASTATIN 40 MG TAB PO SCH (21:00)
[2016-07-30] MEDS: ONDANSETRON HCL 4 MG/2 ML VIAL IVP PRN (21:16)
[2016-07-30] MEDS: PANTOPRAZOLE SODIUM 40 MG VIAL IV PUSH SCH (21:16)
[2016-07-31 00:58] VITALS: BP 122/75; PULSE 91; RESP 18; O2SAT 97
[2016-07-31] MEDS: ACETAMINOPHEN 325 MG TAB PO PRN ×2 (02:37→13:20)
[2016-07-31 02:40] LABS: HEMATOCRIT 33.7 % (39.0-51.0); MEAN CELL VOLUME 90.6 FL (80.0-100.0); MEAN CORPUSCULAR HEMOGLOBIN 31.1 PG (27.0-34.0); MEAN CORPUSCULAR HGB CONC 34.3 % (32.0-36.0); PLATELET COUNT 189 TH/MM3 (150-450); RED BLOOD COUNT 3.72 MIL/MM3 (4.50-5.90); RED CELL DISTRIBUTION WIDTH 12.6 % (11.6-17.2); REVIEW FLAG FINAL; WHITE BLOOD COUNT 3.9 TH/MM3 (4.0-11.0)
[2016-07-31 02:58] LABS: BICARBONATE 24.7 MEQ/L (21.0-32.0); POTASSIUM 3.5 MEQ/L (3.5-5.1)
[2016-07-31] MEDS: SODIUM CHLOR 0.9% 1000 ML INJ 1,000 ML IV SCH ×2 (04:17→13:20)
[2016-07-31] MEDS: INSULIN ASPART SUPPLEMENTAL SCALE SQ SCH ×2 (06:23→13:02)
[2016-07-31] MEDS: ONDANSETRON HCL 4 MG/2 ML VIAL IVP PRN (07:44)
[2016-07-31] MEDS: metroNIDAZOLE 500 MG INJ 100 ML IV SCH (07:48)
[2016-07-31 08:00] VITALS: BP 131/68; PULSE 85; RESP 18; TEMP 97.9; O2SAT 96
[2016-07-31] MEDS ORDERED: ESCITALOPRAM OXALATE 20 MG TAB PO SCH (09:00)
[2016-07-31] MEDS ORDERED: LOSARTAN 50 MG TAB PO SCH (09:00)
[2016-07-31] MEDS ORDERED: METOPROLOL SUCCINATE 25 MG EXTENDED RELEASE TAB PO SCH (09:00)
[2016-07-31] MEDS ORDERED: buPROPion HCL 100 MG SUSTAINED RELEASE TAB PO SCH (09:00)
[2016-07-31] MEDS: PANTOPRAZOLE SODIUM 40 MG VIAL IV PUSH SCH (10:00)
[2016-07-31] MEDS: SODIUM CHLORIDE 0.9% FLUSH 10 ML FLUSH IV FLUSH SCH (10:01)
[2016-07-31 11:54] VITALS: BP 124/68; PULSE 71; RESP 18; TEMP 98; O2SAT 95
--- NOTE | 2016-07-31 12:50 | HHI.PR ---
Subjective Remarks f/u with emesis and abdominal pain. patient had no complaints. no emesis today. continue to have abdominal pain. Objective Vitals Vital Signs Date Time Temp Pulse Resp B/P Pulse Ox O2 Delivery O2 Flow Rate FiO2 07/31/16 11:54 98.0 71 18 124/68 95 07/31/16 08:00 97.9 85 18 131/68 96 07/31/16 00:58 91 18 122/75 97 07/30/16 20:15 98.2 85 18 126/76 96 07/30/16 18:38 98.1 97 18 125/79 97 07/30/16 16:33 107 18 142/81 97 Nasal Cannula 2 07/30/16 13:08 116 18 136/83 99 Nasal Cannula 2 I/O 07/30/16 07/30/16 07/30/16 07/31/16 07/31/16 07/31/16 07:00 15:00 23:00 07:00 15:00 23:00 Intake Total 240 ml Balance 240 ml Intake Oral 240 ml # Voids 1 Result Diagram: 07/31/16 1030 07/31/16 0226 Objective Remarks GENERAL: in NAD CARDIOVASCULAR: Regular rate and rhythm without murmurs, gallops, or rubs. RESPIRATORY: Breath sounds equal bilaterally. No accessory muscle use. GASTROINTESTINAL: Abdomen soft, non-tender, nondistended. MUSCULOSKELETAL: No cyanosis, or edema. BACK: Nontender without obvious deformity. No CVA tenderness. Medications and IVs Current Medications Ondansetron HCl (Zofran Inj) 4 mg ONCE ONCE IVP Last administered on 09:56; Start 07/30/16 at 09:15; Stop 07/30/16 at 09:16; Status DC Sodium Chloride (NS Flush) 2 ml UNSCH PRN IV FLUSH FLUSH AFTER USING IV ACCESS ; Start 07/30/16 at 09:15; Stop 07/30/16 at 12:53; Status DC Pantoprazole Sodium (Protonix Inj) 40 mg ONCE ONCE IV PUSH Last administered on 07/30/16 09:55; Start 07/30/16 at 09:15; Stop 07/30/16 at 09:16; Status DC Iohexol 80 ml 80 ml STK-MED ONCE IV Last administered on 07/30/16 11:35; Start 07/30/16 at 11:35; Stop 07/30/16 at 11:36; Status DC Sodium Chloride (NS 1000 ml Inj) 1,000 ml @ 125 mls/hr Q8H IV Last administered on 07/31/16 04:17; Start 07/30/16 at 12:17 Sodium Chloride (NS Flush) 2 ml UNSCH PRN IV FLUSH FLUSH AFTER USING IV ACCESS ; Start 07/30/16 at 12:30 Sodium Chloride (NS Flush) 2 ml BID IV FLUSH Last administered on 07/31/16 10: 01; Start 07/30/16 at 21:00 Acetaminophen (Tylenol) 650 mg Q4H PRN PO TEMP > 100.4, headache Last administered on 07/31/16 02:37; Start 07/30/16 at 12:30 Ondansetron HCl (Zofran Inj) 4 mg Q6H PRN IVP NAUSEA OR VOMITING Last administered on 07/31/16 07:44; Start 07/30/16 at 12:30 Bisacodyl (Dulcolax Supp) 10 mg DAILY PRN RECTAL CONSTIPATION; Start 07/30/16 at 12:30 Naloxone HCl (Narcan Inj) 0.4 mg UNSCH PRN IV SEE LABEL COMMENTS; Start at 12:30 Ondansetron HCl (Zofran Inj) 4 mg ONCE ONCE IV PUSH Last administered on 13:10; Start 07/30/16 at 12:30; Stop 07/30/16 at 12:31; Status DC Pantoprazole Sodium 40 mg 40 mg Q12H IV PUSH Last administered on 07/31/16 10: 00; Start 07/30/16 at 21:00 Sodium Chloride (NS 1000 ml Inj) 1,000 ml @ 999 mls/hr BOLUS ONCE IV Last administered on 07/30/16 15:10; Start 07/30/16 at 15:00; Stop 07/30/16 at 16:00 ; Status DC Atorvastatin Calcium (Lipitor) 40 mg HS PO Last administered on 07/30/16 21:16 ; Start 07/30/16 at 21:00 Bupropion HCl (Wellbutrin Sr 12 Hr) 200 mg DAILY PO Last administered on 10:01; Start 07/31/16 at 09:00 Escitalopram Oxalate (Lexapro) 20 mg DAILY PO Last administered on 07/31/16 10 :00; Start 07/31/16 at 09:00 Metoprolol Succinate (Toprol Xl) 25 mg DAILY PO Last administered on 07/31/16 10:00; Start 07/31/16 at 09:00 Montelukast Sodium (Singulair) 10 mg HS PO Last administered on 07/30/16 21:16 ; Start 07/30/16 at 21:00 Losartan Potassium (Cozaar) 100 mg DAILY PO Last administered on 07/31/16 10: 00; Start 07/31/16 at 09:00 Potassium Chloride (KCl) 30 meq ONCE ONCE PO Last administered on 07/30/16 15 :15; Start 07/30/16 at 14:45; Stop 07/30/16 at 14:46; Status DC Dextrose (D50w (Vial) Inj) 25 ml UNSCH PRN IV PUSH HYPOGLYCEMIA-SEE COMMENTS; Start 07/30/16 at 14:45 Glucagon (Glucagon Inj) 1 mg UNSCH PRN OTHER HYPOGLYCEMIA-SEE COMMENTS; Start 07/30/16 at 14:45 Insulin Aspart 1 1 ACHS SLIDING SCALE SQ Last administered on 07/30/16 16:31 ; Start 07/30/16 at 16:00 Metronidazole (Flagyl 500 Mg Inj) 100 ml @ 100 mls/hr Q8H IV Last administered on 07/31/16 07:48; Start 07/30/16 at 16:00 A/P Assessment and Plan 56-year-old male with history of hypertension, lipidemia, COPD, diet-controlled diabetes, depression who presented with Abdominal pain, emesis, and diarrhea -CT scan showed a borderline small abdominal aneurysm, hiatal hernia, hepatic cysts, lower abdominal wall hernia repair. -Patient had an outpatient ultrasound the liver and CT scan of his abdomen which was negative. -Questionable hematemesis none witness so far and hemoccult negative. -Hemoglobin decreased and now stable. maybe due to hemoconcentration from dehydration.stools studies negative so far. c diff negative. TSH WNL. -on Protonix 40 mg IV twice a day. -Continue with supportive care with IV fluids and anti-emetics. Questionable hematemesis -see above -Will hold aspirin and Celebrex. Dysphagia - barium swallow study negative. Leukocytosis -RESOLVED. -Most likely secondary to an inflammatory process. -No bacterial infection noted at the moment. Tachycardia -RESOLVED with fluids. -Most likely secondary to dehydration. -He will be monitored on telemetry. Hypokalemia -Replenish as needed. Hypertension/hyperlipidemia/type 2 diabetes diet-controlled/depression/hairy cell leukemia in remission -Will hold aspirin and Celebrex secondary to possible GI bleed. -continue home medication. -Also start patient on insulin sliding scale. DVT prophylaxis -Will avoid chemoprophylaxis due to possible GI bleed. -SCDs. Discharge Planning pending results of scope. if continues to be stable can be dc after procedure. Amanda Gil MD Jul 31, 2016 12:50
[2016-07-31] MEDS ORDERED: METR-1 PO (13:49)
--- NOTE | 2016-07-31 13:50 | HHI.DCPOC ---
Discharge Care Plan Diagnosis: (1) Abdominal pain (2) Nausea and vomiting Goals to Promote Your Health * To prevent worsening of your condition and complications * To maintain your health at the optimal level Directions to Meet Your Goals Take your medications as prescribed Follow your dietary instruction Follow activity as directed Keep your appointments as scheduled Take your immunizations and boosters as scheduled If your symptoms worsen call your PCP, if no PCP go to Urgent Care Center or Emergency Room Smoking is Dangerous to Your Health. Avoid second hand smoke Call the 24-hour hour crisis hotline for domestic abuse at Amanda Gil MD Jul 31, 2016 13:50
--- NOTE | 2016-07-31 13:53 | HHI.DS ---
Discharge Summary Admission Date Jul 30, 2016 at 12:05 Discharge Date: Jul 31, 2016 Admitting Diagnosis abdominal pain/GI bleed (1) Nausea and vomiting ICD Code: R11.2 Diagnosis: Principal (2) Abdominal pain ICD Code: R10.9 Diagnosis: Principal (3) GI bleeding ICD Code: K92.2 Diagnosis: Principal (4) Dysphagia ICD Code: R13.10 Diagnosis: Secondary Procedures none Brief History - From Admission This is a 66-year-old male past medical history of hypertension, hyperlipidemia , diet-controlled type 2 diabetes, COPD, history of hairy cell leukemia in remission who presented with abdominal pain, emesis, diarrhea, and dysphasia for 1 month. Patient stated that pain is constant, diffuse across the abdomen. He stated nothing makes it better or worse. Patient states emesis occurs randomly and it may or may not be associated with food. Emesis described as anything that patient ingest. Patient also had diarrhea about 6 watery stools every day. Deny any recent travels or antibiotic use. He stated that yesterday it had gotten so bad where he had increased emesis in which he saw some blood and 3 of the episodes so went to emergency department. Patient did see his primary care physician regards to this and stated that he had a CT scan of the abdomen and pelvis and abdominal ultrasound in which workup was negative. Patient takes aspirin 81 mg and Celebrex. Otherwise he denies taking any other NSAIDs. Patient had a colonoscopy a couple years ago and had a few polyps that were benign. He also complained about difficulty swallowing for the past month. He stated that when he ingests solid food he feels like it stuck in his throat. He also stated that this occurs with liquids but is mild. CBC/BMP: 07/31/16 1030 07/31/16 0226 Significant Findings Laboratory Tests Test 07/30/16 07/30/16 07/30/16 07/31/16 09:15 16:20 20:29 02:26 White Blood Count 14.6 TH/MM3 3.9 TH/MM3 (4.0-11.0) (4.0-11.0) Neutrophils (%) (Auto) 88.4 % (16.0-70.0) Lymphocytes (%) (Auto) 5.0 % (9.0-44.0) Neutrophils # (Auto) 12.9 TH/MM3 (1.8-7.7) Lymphocytes # (Auto) 0.7 TH/MM3 (1.0-4.8) Potassium Level 3.3 MEQ/L (3.5-5.1) Chloride Level 109 MEQ/L 110 MEQ/L (98-107) (98-107) Carbon Dioxide Level 19.6 MEQ/L (21.0-32.0) Blood Urea Nitrogen 27 MG/DL (7-18) 24 MG/DL (7-18) Estimat Glomerular Filtration 64 ML/MIN (>89) 78 ML/MIN (>89) Rate Random Glucose 181 MG/DL 109 MG/DL (74-106) (74-106) Aspartate Amino Transf 10 U/L (15-37) (AST/SGOT) Urine Specific [place] GREATER THAN 1.035 (1.002-1.035) Urine Ketones TRACE mg/dL (NEG) Urine Mucus FEW /lpf (OCC) Hemoglobin 12.4 GM/DL 11.6 GM/DL (13.0-17.0) (13.0-17.0) Red Blood Count 3.72 MIL/MM3 (4.50-5.90) Hematocrit 33.7 % (39.0-51.0) Calcium Level 7.5 MG/DL (8.5-10.1) Test 07/31/16 10:30 Hemoglobin 11.4 GM/DL (13.0-17.0) Imaging Last Impressions Abdomen/Pelvis CT 07/30/16 1036 Signed Impressions: Service Date/Time: July 11:30 - CONCLUSION: 1. Borderline small abdominal aortic aneurysm without change. 2. Small hiatal hernia. 3. Stable small hepatic cysts and mild hepatic steatosis. 4. Status post lower anterior abdominal wall hernia repair. Jozef Dennis MD Abdomen X-Ray 07/30/16 0953 Signed Impressions: Service Date/Time: July 09:46 - CONCLUSION: 1. Unremarkable bowel gas pattern. 2. Degenerative and postsurgical changes in the lumbar spine. Jozef Dennis MD Barium Swallow X-Ray 07/30/16 0000 Signed Impressions: Service Date/Time: July 14:53 - CONCLUSION: Unremarkable exam. Jozef Dennis MD PE at Discharge GENERAL: in NAD CARDIOVASCULAR: Regular rate and rhythm without murmurs, gallops, or rubs. RESPIRATORY: Breath sounds equal bilaterally. No accessory muscle use. GASTROINTESTINAL: Abdomen soft, non-tender, nondistended. MUSCULOSKELETAL: No cyanosis, or edema. BACK: Nontender without obvious deformity. No CVA tenderness. Pt update on day of discharge patient seen again in afternoon asking to eat. patient had no episode of emesis while hospitalized. No diarrhea noted in house too, but patient stated he continues to have diarrhea but that has improved. information taken for the nurse. Hospital Course 56-year-old male with history of hypertension, lipidemia, COPD, diet-controlled diabetes, depression who presented with Abdominal pain, emesis, and diarrhea -CT scan showed a borderline small abdominal aneurysm, hiatal hernia, hepatic cysts, lower abdominal wall hernia repair. -Patient had an outpatient ultrasound the liver and CT scan of his abdomen which was negative. -Questionable hematemesis none witness so far and hemoccult negative. -Hemoglobin decreased and now stable. maybe due to hemoconcentration from dehydration.stools studies negative so far. c diff negative. TSH WNL. -was put on protonix. -GI consulted and he was put on flagyl and stated can be scoped as outpatient. Questionable hematemesis -see above Dysphagia - barium swallow study negative. Leukocytosis -RESOLVED. -Most likely secondary to an inflammatory process. -No bacterial infection noted at the moment. Tachycardia -RESOLVED with fluids. -Most likely secondary to dehydration. -He will be monitored on telemetry. Hypokalemia -Replenish as needed. Hypertension/hyperlipidemia/type 2 diabetes diet-controlled/depression/hairy cell leukemia in remission -initially held aspirin and Celebrex secondary to possible GI bleed but no bleed noted so resumed. -continue home medication. -Also start patient on insulin sliding scale. Pt Condition on Discharge: Good Discharge Disposition: Discharge Home Discharge Time: > 30 minutes Discharge Instructions DIET: Follow Instructions for: Heart Healthy Diet Activities you can perform: Regular-No Restrictions Follow up Referrals: Gastroenterology - 1 Week with Anrdew Bronw MD PCP Follow-up - 1 Week New Medications: Metronidazole (Flagyl) 500 Mg Tab 500 MG PO TID Infection #15 Ref 0 TAB Continued Medications: Aspirin DR (Aspir-Low) 81 Mg Tabdr 81 MG DAILY Atorvastatin (Atorvastatin) 40 Mg Tab 40 MG PO HS Cholesterol Management #30 Ref 0 TAB Bupropion HCl ER 12 HR (Wellbutrin SR 12 HR) 200 Mg Tab 200 MG PO DAILY Control Depression Ref 0 TAB Celecoxib (Celecoxib) 200 Mg Cap 200 MG PO DAILY Pain Management Ref 0 CAP Escitalopram (Escitalopram) 20 Mg Tab 20 MG PO DAILY #30 Ref 0 TAB Irbesartan (Irbesartan) 300 Mg Tab 300 MG PO DAILY Blood Pressure Management #30 Ref 0 TAB Metoprolol Succinate ER 24 HR (Metoprolol Succinate ER 24 HR) 25 Mg Tab 25 MG PO DAILY #30 Ref 0 TAB Montelukast (Montelukast) 10 Mg Tab 10 MG PO HS #30 Ref 0 TAB Nitroglycerin SL (Nitrostat SL) 0.4 Mg Subl 0.4 MG SL DIRECTED 1 tablet under the tongue as needed for chest pain. Repeat every 5 minutes for a total of 3 DOSES or call 911 if NO relief. PRN CHEST PAIN #100 Ref 0 TAB.SL Omeprazole (Omeprazole) 40 Mg Cap 40 MG PO DAILY #30 Ref 0 CAP Amanda Gil MD Jul 31, 2016 13:53
--- NOTE | 2016-07-31 14:52 | HHI.GIFU ---
Subjective Remarks Resting in bed. No complaints. Feeling better. Tolerating diet and getting appetite back. 5 loose stools today. No bleeding. (Ranjana Lam ) Objective Vitals I&O Vital Signs Date Time Temp Pulse Resp B/P Pulse Ox O2 Delivery O2 Flow Rate FiO2 07/31/16 11:54 98.0 71 18 124/68 95 07/31/16 08:00 97.9 85 18 131/68 96 07/31/16 00:58 91 18 122/75 97 07/30/16 20:15 98.2 85 18 126/76 96 07/30/16 18:38 98.1 97 18 125/79 97 07/30/16 16:33 107 18 142/81 97 Nasal Cannula 2 I/O 07/30/16 07/30/16 07/30/16 07/31/16 07/31/16 07/31/16 07:00 15:00 23:00 07:00 15:00 23:00 Intake Total 240 ml Balance 240 ml Intake Oral 240 ml # Voids 1 Laboratory Laboratory Tests Test 07/30/16 07/30/16 07/31/16 07/31/16 16:20 20:29 02:26 10:30 Urine Color YELLOW Urine Turbidity CLEAR Urine pH 6.0 Urine Specific [place] GREATER THAN 1.035 Urine Protein TRACE Urine Glucose (UA) NEG Urine Ketones TRACE Urine Occult Blood NEG Urine Nitrite NEG Urine Bilirubin NEG Urine Urobilinogen LESS THAN 2.0 Urine Leukocyte Esterase NEG Urine RBC 1 Urine WBC 1 Urine Mucus FEW Microscopic Urinalysis Comment CULT NOT INDICATED Hemoglobin 12.4 11.6 11.4 White Blood Count 3.9 Red Blood Count 3.72 Hematocrit 33.7 Mean Corpuscular Volume 90.6 Mean Corpuscular Hemoglobin 31.1 Mean Corpuscular Hemoglobin 34.3 Concent Red Cell Distribution Width 12.6 Platelet Count 189 Mean Platelet Volume 9.2 Sodium Level 141 Potassium Level 3.5 Chloride Level 110 Carbon Dioxide Level 24.7 Anion Gap 6 Blood Urea Nitrogen 24 Creatinine 0.96 Estimat Glomerular Filtration 78 Rate Random Glucose 109 Calcium Level 7.5 Date/Time Procedure Status Source Growth 07/30/16 10:30 Cryptosporidium Exam Resulted Stool Stool Pending 07/30/16 10:30 Giardia Antigen ([facility]ANI) Resulted Stool Stool Pending 07/30/16 10:30 Stool Occult Blood ([facility]ANI) - Final Resulted Stool Stool HEMOCCULT NEGATIVE 07/30/16 10:30 Received Stool Stool Pending 07/30/16 10:30 Cancelled Stool Stool Imaging Last Impressions Abdomen/Pelvis CT 07/30/16 1036 Signed Impressions: Service Date/Time: July 11:30 - CONCLUSION: 1. Borderline small abdominal aortic aneurysm without change. 2. Small hiatal hernia. 3. Stable small hepatic cysts and mild hepatic steatosis. 4. Status post lower anterior abdominal wall hernia repair. Jozef Dennis MD Abdomen X-Ray 07/30/16 0920 Signed Impressions: Service Date/Time: July 09:46 - CONCLUSION: 1. Unremarkable bowel gas pattern. 2. Degenerative and postsurgical changes in the lumbar spine. Jozef Dennis MD Barium Swallow X-Ray 07/30/16 0000 Signed Impressions: Service Date/Time: July 14:53 - CONCLUSION: Unremarkable exam. Jozef Dennis MD Physical Exam HEENT: Normocephalic; atraumatic; no jaundice. CHEST: CTA CARDIAC: RRR ABDOMEN: Soft, nondistended, nontender; no hepatosplenomegaly; bowel sounds are present in all four quadrants. EXTREMITIES: No clubbing, cyanosis, or edema. SKIN: Normal; no rash; no jaundice. BOAT OUTFITTER: No focal deficits; alert and oriented times three. (Ranjana Lam) Assessment and Plan Plan ASSESSMENT: - N/V/D with abdominal pain. 1 month hx of N/V/D with diffuse abdominal pain ( mild to mod dull ache/pressure) intermittent, without aggravating or alleviating factors. No recent travel, suspicious food, sick contacts. Was treated with abx about 3 weeks ago for a sinus infection. Abdomen X-Ray (07/30/16)----> 1. Unremarkable bowel gas pattern. 2. Degenerative and postsurgical changes in the lumbar spine. Abdomen/Pelvis CT (07/30/16)----> 1. Borderline small abdominal aortic aneurysm without change. 2. Small hiatal hernia. 3. Stable small hepatic cysts and mild hepatic steatosis. 4. Status post lower anterior abdominal wall hernia repair. Mild leukocytosis. CT as above. Last colonoscopy 2 years ago- polyps. CDiff negative. Cryptosporidium, giardia, c/s pending. 5 loose stools today (small) but otherwise, doing much better and tolerating diet. No n/v today. Pain improved. Eating a regular diet. States he has his appetite back. - GIB with hematemesis. Pt has had persistent nausea/vomiting x 1 month. Initially bilious material, but did have two episodes of vomiting bilious material with streaks of blood in his emesis last night. He has not had any further episodes. Remote hx of PUD 20 years ago. HH 11.6/33.7. - Dysphagia. C/O one month hx of solids getting caught in upper esophagus, occasionally happens with liquids. Barium Swallow X-Ray (07/30/16)-----> Unremarkable exam. - Leukocytosis. CDiff negative, other stool studies pending. - Hypokalemia. Replacement per primary - HTN, Hyperlipidemia, DM, COPD per primary - Hx hairy cell leukemia, s/p chemotherapy- currently in remission since 2007 PLAN: - SHANELLE - Await cryptosporidium, giardia, c/s. - Cont. Protonix - Cont. Flagyl x 5-7 days - Okay to d/c home and plan for egd +/- dilataiton, colonoscopy as outpatient once stool studies resulted. - FU RUSTY 2 weeks - Pt seen and examined by Dr. Brown and myself and this note is written on his behalf (Ranjana Lam) Physician Comments Patient seen and examined Agree with above Continue with current supportive care Monitor labs Okay for DC from a GI standpoint (Andrew Brown MD) Ranjana Lam Jul 31, 2016 14:52 Andrew Brown MD Aug 01, 2016 00:05
== END 2016-07-31 15:35 | disposition home or self-care (01) ==
LOC: NEPC 08:54 → NEDA 12:05 → NEPGCP 17:30
PROVIDERS: ADMIT Family Medicine; ATTEND Family Medicine
DX: R10.9 Unspecified abdominal pain (principal); R11.2 Nausea with vomiting, unspecified; I71.4 Abdominal aortic aneurysm, without rupture; K44.9 Diaphragmatic hernia without obstruction or gangrene; K76.89 Other specified diseases of liver; K92.2 Gastrointestinal hemorrhage, unspecified; D72.829 Elevated white blood cell count, unspecified; R00.0 Tachycardia, unspecified; E87.6 Hypokalemia; R13.10 Dysphagia, unspecified; I10 Essential (primary) hypertension; E78.5 Hyperlipidemia, unspecified; E11.9 Type 2 diabetes mellitus without complications; J44.9 Chronic obstructive pulmonary disease, unspecified; C95.91 Leukemia, unspecified, in remission; F32.9 Major depressive disorder, single episode, unspecified; E78.00 Pure hypercholesterolemia, unspecified; K21.9 Gastro-esophageal reflux disease without esophagitis; E86.0 Dehydration; Z92.21 Personal history of antineoplastic chemotherapy; Z79.82 Long term (current) use of aspirin; Z87.891 Personal history of nicotine dependence; Z87.11 Personal history of peptic ulcer disease; Z86.010 Personal history of colon polyps; Z92.3 Personal history of irradiation
CPT/HCPCS: 74020; 74177; 74230; 80048; 80053; 81001; 82272; 82948; 83690; 84443; 85018; 85025; 85027; 87328; 87493; 87506; 93005; 96374; 96375; 99285; C9113; G0378; J1815; J2405; J7030; Q9967; 87329